=== PATIENT | female | born 1960 | race Native Hawaiian/Other Pacific Islander ===

== ENCOUNTER 2017-10-04 21:27 | Emergency (ER) | payer SELFPAY ==
[~2017-10-04 21:27] MED LIST: Z.0.NO CURRENT MEDS
[2017-10-04 21:32] VITALS: BP 175/87; PULSE 76; RESP 16; TEMP 97.7; O2SAT 100
[2017-10-04] MEDS ORDERED: LIDOCAINE HCL 1% 50 ML VIAL INFIL ONE (21:45)
[2017-10-04] MEDS ORDERED: TETANUS/DIPHTHERIA TOXOID ADULT 0.5 ML VIAL IM ONE (21:45)
--- NOTE | 2017-10-04 21:45 | PD ---
HPI Chief Complaint: Laceration/Skin Injury Time Seen by Provider: 21:38 Travel History International Travel<30 days: No Contact w/Intl Traveler<30days: No Traveled to known affect area: No History of Present Illness HPI 57-year-old [id number] female presents to emergency department with a laceration to her ulnar aspect of the mid phalanx of her right little finger. This had occurred when cleaning a platemaker. She denies any weakness but has decreased sensation distally from the laceration. She has not had a tetanus shot over 5 years. Pain is mild. No alleviating factors. PFSH Past Medical History Medical History: Denies Significant Hx ?: Not Past Surgical History Surgical History: No Previous Surgery Social History Alcohol Use: No Tobacco Use: No Substance Use: No Allergies-Medications (Allergen,Severity, Reaction): Coded Allergies: No Known Allergies (Unverified Adverse Reaction, Unknown, 10/04/17) Reported Meds & Prescriptions Reported Meds & Active Scripts Active No Active Prescriptions or Reported Medications Review of Systems General / Constitutional: No: Fever Eyes: No: Visual changes HENT: No: Headaches Cardiovascular: No: Chest Pain or Discomfort Respiratory: No: Shortness of Breath Gastrointestinal: No: Abdominal Pain Genitourinary: No: Dysuria Musculoskeletal: No: Pain Skin: No Rash Neurologic: No: Weakness Psychiatric: No: Depression Endocrine: No: Polydipsia Hematologic/Lymphatic: No: Easy Bruising Physical Exam Narrative GENERAL: This is a well-nourished, well-developed patient, in no apparent distress. SKIN: No rashes, ecchymoses or lesions. Warm and dry. HEAD: Atraumatic. Normocephalic. EYES: PERRL, EOMI, no discharge or injection. No scleral icterus. EARS: Clear NOSE: Nasal turbinates appear normal. THROAT: Mucosa pink and moist. Airway patent. NECK: Trachea midline. supple, moves head freely. LUNGS: Clear to auscultation. CV: Regular in rhythm. ABDOMEN: Soft nontender. EXT: No clubbing cyanosis or edema. Patient has a 1.5 center laceration to the ulnar aspect of the mid phalanx of the right little finger. She has hypoesthesia from the laceration to the tip of her finger. There is no tendon or joint injury. She is able extend and flex freely. No foreign body. No bony injury. Data Data Last Documented VS Vital Signs Date Time Temp Pulse Resp B/P (MAP) Pulse Ox O2 Delivery O2 Flow Rate FiO2 10/04/17 21:32 97.7 76 16 175/87 (116) 100 MDM Medical Decision Making Medical Screen Exam Complete: Yes Emergency Medical Condition: Yes Medical Record Reviewed: Yes Differential Diagnosis MDM: High Differential diagnoses: Fracture, sprain, strain, dislocation, contusion, neurovascular injury Narrative Course Patient's lacerations closed sutures. Tetanus status updated. Procedures Procedure Narrative LACERATION LOCATION: Right little finger LENGTH: 1.5 cm NUMBER OF STITCHES/NITIN: 4 REPAIR: The area of the laceration was prepped with Betadine and sterilely draped. The laceration was infiltrated with 1% lidocaine digital block. The wound was copiously irrigated and explored without evidence of foreign body, tendon injury injury. Patient has a digital nerve injury on the ulnar aspect of the little finger from the mid phalanx. The wound was closed using 5-0 proline. This was a simple single layer repair. A sterile dressing was applied. The patient was advised to keep the dressing clean and dry. Patient tolerated the procedure well. Diagnosis Primary Impression: right little finger laceration with digital nerve injury Patient Instructions: General Instructions Additional Instructions: Rest. Elevation. Keep clean and dry. Daily wound care with soap, water, Neosporin. Tylenol and Advil for pain. Sutures out in 14 days. Follow-up with an orthopedic hand surgeon within 1 week. Return to the ER for any problems. Med/Other Pt SpecificInfo: Wound Care Scripts No Active Prescriptions or Reported Meds Disposition: 01 DISCHARGE HOME Condition: Stable Óscar Jefferson Oct 04, 2017 21:45
== END 2017-10-04 22:15 | disposition home or self-care (01) ==
LOC: NEPK 21:27
DX: S61.216A Laceration without foreign body of right little finger without damage to nail, initial encounter (principal); W45.8XXA Other foreign body or object entering through skin, initial encounter; W29.0XXA Contact with powered kitchen appliance, initial encounter
CPT/HCPCS: 12001; 90471